=== PATIENT | female | born 1935 | race African-American/Black ===

== ENCOUNTER 2018-03-07 09:18 | Inpatient (IN) | payer MEDICARE, MEDICAID ==
[~2018-03-07] VITALS: Ht 162.6 cm; Wt 57.6 kg
[~2018-03-07 09:18] MED LIST: ACET-2178 PO; BACL-141 PO; ERGO500013 PO; FLUT100D INH; IRBE1TAB11 PO; LEVO5TAB13 PO; LUBI24CA5 PO; MECL-109 PO; MELO-106 PO
[2018-03-07] MEDS ORDERED: ONDANSETRON HCL 4MG/2ML INJ IV STA (10:54)
[2018-03-07] MEDS ORDERED: FENTANYL CITRATE/PF 50MCG/ML 2ML VIAL IV NR (11:00)
[2018-03-07] MEDS ORDERED: FENTANYL CITRATE/PF 50MCG/ML 2ML VIAL IV ONE (11:00)
[2018-03-07 12:21] LABS: BASOPHILS % 0.8 % (0.0-2.0); EOSINOPHILS % 0.2 % (0.0-5.0); HEMATOCRIT. 39.4 % (36.0-48.0); HEMOGLOBIN. 13.1 g/dL (12.0-16.0); LYMPHOCYTES % 22.4 % (20.0-50.0); MEAN CORPUSCULAR HEMOGLOBIN 28.9 pg (28.0-32.0); MEAN CORPUSCULAR VOLUME 86.9 fL (81.0-99.0); MEAN PLATELET VOLUME 8.7 fl (7.4-10.4); NEUTROPHILS % 69.6 % (40.0-76.0); PLATELET 312 x1000/uL (130-400); RED BLOOD CELL COUNT 4.53 mill/uL (4.2-5.4); RED CELL DISTRIBUTION WIDTH 13.5 % (11.6-14.6)
[2018-03-07 12:34] LABS: CHLORIDE 102 mEq/L (98-107)
[2018-03-07] MEDS ORDERED: DEXTROSE 50% WATER 50ML SYRINGE IV ONE (13:30)
[2018-03-07 14:31] LABS: CLARITY URINE CLEAR (CLEAR); COLOR URINE YELLOW (YELLOW); KETONES URINE 3+ (NEGATIVE); LEUKOCYTE ESTERASE URINE NEGATIVE (NEGATIVE); NITRITE URINE NEGATIVE (NEGATIVE); OCCULT BLOOD URINE NEGATIVE (NEGATIVE); PROTEIN URINE NEGATIVE (NEGATIVE); SPECIFIC GRAVITY URINE 1.014 (1.005-1.030)
[2018-03-07] MEDS ORDERED: ONDANSETRON HCL 4MG/2ML INJ IV PRN (17:15)
[2018-03-07] MEDS ORDERED: ACETAMINOPHEN 325MG TABLET PO PRN (17:15)
[2018-03-07] MEDS ORDERED: MAGNESIUM/ALUMINUM HYDROXIDE/SIMETHICONE 30ML UDC PO PRN (17:15)
[2018-03-07] MEDS ORDERED: DOCUSATE SODIUM 100MG CAPSULE PO PRN (17:15)
[2018-03-07] MEDS ORDERED: DIPHENHYDRAMINE 50MG/ML VIAL IV PRN (17:15)
[2018-03-07 22:00] VITALS: BP 145/67
[2018-03-07] MEDS: DEXT 5%/0.45% NACL 1000ML 1,000 ML IV SCH (23:02)
[2018-03-07 23:20] VITALS: BP 145/67
[2018-03-08] VITALS: BP 136/65
[2018-03-08] MEDS ORDERED: HYDR25TA MT (01:53)
[2018-03-08] MEDS ORDERED: LOSA25TA12 MT (01:54)
[2018-03-08] MEDS ORDERED: DEXL60CA3 MT (02:00)
[2018-03-08] MEDS ORDERED: ALEN70TA46 MT (02:01)
[2018-03-08] MEDS ORDERED: SULF-288 MT (02:03)
[2018-03-08] MEDS ORDERED: DICL75TA5 MT (02:03)
[2018-03-08] MEDS ORDERED: LACT10SO30 MT (02:04)
[2018-03-08 04:00] VITALS: BP 115/57
[2018-03-08 07:12] LABS: EOSINOPHILS % 0.7 % (0.0-5.0); HEMOGLOBIN. 12.5 g/dL (12.0-16.0); LYMPHOCYTES % 21.4 % (20.0-50.0); MEAN CORPUSCULAR HEMOGLOBIN 28.8 pg (28.0-32.0); MEAN CORPUSCULAR VOLUME 87.2 fL (81.0-99.0); MEAN PLATELET VOLUME 8.5 fl (7.4-10.4); MONOCYTES % 8.5 % (2.0-8.0); NEUTROPHILS % 68.4 % (40.0-76.0); PLATELET 291 x1000/uL (130-400); RED BLOOD CELL COUNT 4.35 mill/uL (4.2-5.4); RED CELL DISTRIBUTION WIDTH 13.7 % (11.6-14.6)
[2018-03-08 07:40] LABS: CHLORIDE 104 mEq/L (98-107)
[2018-03-08 08:00] VITALS: BP 118/53
[2018-03-08 12:00] VITALS: BP 113/68
[2018-03-08] MEDS: DEXT 5%/0.45% NACL 1000ML 1,000 ML IV SCH (12:01)
[2018-03-08 16:00] VITALS: BP 144/61
[2018-03-08 20:00] VITALS: BP 136/63
[2018-03-08] MEDS: LOSARTAN POTASSIUM 50 MG TABLET PO SCH (20:15)
[2018-03-08] MEDS ORDERED: LACTULOSE 20G/30ML UDC PO PRN (20:15)
[2018-03-08] MEDS: PREGABALIN 25MG CAPSULE PO SCH (21:02)
[2018-03-08] MEDS: DICLOFENAC SODIUM 50MG EC TABLET PO SCH (23:15)
[2018-03-09] VITALS (7 sets, daily range): BP systolic 88–143; BP diastolic 45–62
[2018-03-09] MEDS: DEXT 5%/0.45% NACL 1000ML 1,000 ML IV SCH ×2 (06:01→14:36)
[2018-03-09 06:47] LABS: BASOPHILS % 1.2 % (0.0-2.0); EOSINOPHILS % 1.6 % (0.0-5.0); HEMATOCRIT. 38.9 % (36.0-48.0); HEMOGLOBIN. 12.8 g/dL (12.0-16.0); LYMPHOCYTES % 22.7 % (20.0-50.0); MEAN CORPUSCULAR HEMOGLOBIN 28.7 pg (28.0-32.0); MEAN CORPUSCULAR VOLUME 87.4 fL (81.0-99.0); MEAN PLATELET VOLUME 8.2 fl (7.4-10.4); MONOCYTES % 9.2 % (2.0-8.0); NEUTROPHILS % 65.3 % (40.0-76.0); PLATELET 283 x1000/uL (130-400); RED BLOOD CELL COUNT 4.46 mill/uL (4.2-5.4); RED CELL DISTRIBUTION WIDTH 13.3 % (11.6-14.6)
[2018-03-09] MEDS ORDERED: ALENDRONATE SODIUM 35MG TABLET PO SCH (07:00)
[2018-03-09 07:35] LABS: CHLORIDE 107 mEq/L (98-107)
[2018-03-09] MEDS: FUROSEMIDE 40MG/4ML VIAL IVP SCH (08:37)
[2018-03-09] MEDS: CALCIUM CARBONATE 1250MG TABLET (500MG ELEMENTAL CALCIUM) PO SCH ×3 (08:38→17:45)
[2018-03-09] MEDS: DICLOFENAC SODIUM 50MG EC TABLET PO SCH ×2 (08:38→21:20)
[2018-03-09] MEDS: POTASSIUM CHLORIDE 10MEQ TABLET SR PO SCH (08:38)
[2018-03-09] MEDS: LOSARTAN POTASSIUM 50 MG TABLET PO SCH (08:38)
[2018-03-09] MEDS: PREGABALIN 25MG CAPSULE PO SCH ×2 (08:38→21:20)
[2018-03-09] MEDS: ENOXAPARIN 40MG/0.4ML SYR SUBCUT SCH (21:20)
[2018-03-10] VITALS (7 sets, daily range): BP systolic 90–142; BP diastolic 48–76
[2018-03-10 06:06] LABS: CHLORIDE 107 mEq/L (98-107)
[2018-03-10 06:07] LABS: BASOPHILS % 1.2 % (0.0-2.0); EOSINOPHILS % 1.9 % (0.0-5.0); HEMATOCRIT. 37.6 % (36.0-48.0); HEMOGLOBIN. 12.4 g/dL (12.0-16.0); LYMPHOCYTES % 24.8 % (20.0-50.0); MEAN CORPUSCULAR HEMOGLOBIN 29.1 pg (28.0-32.0); MEAN CORPUSCULAR VOLUME 88.3 fL (81.0-99.0); MEAN PLATELET VOLUME 8.8 fl (7.4-10.4); NEUTROPHILS % 64.1 % (40.0-76.0); PLATELET 254 x1000/uL (130-400); RED BLOOD CELL COUNT 4.26 mill/uL (4.2-5.4); RED CELL DISTRIBUTION WIDTH 13.7 % (11.6-14.6)
[2018-03-10] MEDS: LOSARTAN POTASSIUM 50 MG TABLET PO SCH (09:00)
[2018-03-10] MEDS: PREGABALIN 25MG CAPSULE PO SCH ×2 (09:09→22:11)
[2018-03-10] MEDS: POTASSIUM CHLORIDE 10MEQ TABLET SR PO SCH (09:09)
[2018-03-10] MEDS: DICLOFENAC SODIUM 50MG EC TABLET PO SCH ×2 (09:09→22:10)
[2018-03-10] MEDS: FUROSEMIDE 40MG/4ML VIAL IVP SCH (09:10)
[2018-03-10] MEDS: CALCIUM CARBONATE 1250MG TABLET (500MG ELEMENTAL CALCIUM) PO SCH ×3 (09:10→17:00)
[2018-03-10] MEDS: ENOXAPARIN 40MG/0.4ML SYR SUBCUT SCH (22:12)
== END 2018-03-10 22:25 | DRG 558 ==
LOC: ER 09:25 → 5WST 13:54 → EDBEDREQ 13:58 → SUPCPDRO 17:10 → ENRESERV 18:46
PROVIDERS: ADMIT Internal Medicine Rheumatology; ATTEND Internal Medicine Rheumatology
DX: M70.71 Other bursitis of hip, right hip (principal); M70.72 Other bursitis of hip, left hip; G56.02 Carpal tunnel syndrome, left upper limb; I50.9 Heart failure, unspecified; I11.0 Hypertensive heart disease with heart failure; E87.6 Hypokalemia; M81.0 Age-related osteoporosis without current pathological fracture; M16.11 Unilateral primary osteoarthritis, right hip; M16.12 Unilateral primary osteoarthritis, left hip; M51.36 Other intervertebral disc degeneration, lumbar region; K21.9 Gastro-esophageal reflux disease without esophagitis; R29.6 Repeated falls; Z82.49 Family history of ischemic heart disease and other diseases of the circulatory system; Z88.1 Allergy status to other antibiotic agents; Z88.0 Allergy status to penicillin; Z88.5 Allergy status to narcotic agent; Z79.1 Long term (current) use of non-steroidal anti-inflammatories (NSAID); Z79.899 Other long term (current) drug therapy
CPT/HCPCS: 36415; 71045; 72192; 73502; 80048; 83735; 83880; 84484; 84550; 93005; 96374; 97116; 97162; 97166; 97530; 97535; 99285; J1650; J1940; J3010

== ENCOUNTER 2019-02-03 11:17 | Emergency (ER) | payer MEDICARE, MEDICAID ==
[~2019-02-03] VITALS: Ht 152.4 cm; Wt 82.0 kg
[2019-02-03] MEDS ORDERED: ACETAMINOPHEN 325MG TABLET PO ONE (12:30)
[2019-02-03 13:23] LABS: BASOPHILS % 2.3 % (0.0-2.0); HEMATOCRIT. 33.2 % (36.0-48.0); HEMOGLOBIN. 11.1 g/dL (12.0-16.0); LYMPHOCYTES % 32.3 % (20.0-50.0); MEAN CORPUSCULAR HEMOGLOBIN 27.1 pg (28.0-32.0); MEAN CORPUSCULAR VOLUME 81.2 fL (81.0-99.0); MEAN PLATELET VOLUME 7.8 fl (7.4-10.4); MONOCYTES % 7.3 % (2.0-8.0); NEUTROPHILS % 57.1 % (40.0-76.0); PLATELET 326 x1000/uL (130-400); RED BLOOD CELL COUNT 4.09 mill/uL (4.2-5.4); RED CELL DISTRIBUTION WIDTH 13.8 % (11.6-14.6)
[2019-02-03 13:30] LABS: CHLORIDE 102 mEq/L (98-107)
[2019-02-03 13:31] LABS: PARTIAL THROMBOPLASTIN TIME 26.4 sec (23.4-31.0); PROTHROMBIN TIME 10.6 sec (9.6-11.0)
[2019-02-03] MEDS ORDERED: VANCOMYCIN 1 G PREMIX 200 ML IV ONE (15:00)
[2019-02-03] MEDS ORDERED: LEVOFLOXACIN 750MG PREMIX 150 ML IV ONE (15:00)
[2019-02-03] MEDS ORDERED: BACITRACIN 15GM TUBE TOP ONE (17:45)
[2019-02-03 17:50] VITALS: BP 140/60
[2019-02-03] MEDS ORDERED: BACITRACIN ZINC OINT UDPKT TOP NR (18:00)
== END 2019-02-03 18:02 | disposition home or self-care (01) ==
LOC: ER 11:17
DX: L03.115 Cellulitis of right lower limb (principal); I10 Essential (primary) hypertension; Z88.5 Allergy status to narcotic agent; Z88.0 Allergy status to penicillin; Z91.018 Allergy to other foods
CPT/HCPCS: 36415; 71045; 80053; 83880; 84484; 85025; 85610; 85730; 87040; 93005; 93970; 96365; 96366; 96367; 99284; J1956; J3370